=== PATIENT | female | born 1935 | race Caucasian/White ===

== ENCOUNTER 2020-06-12 08:38 | Emergency (ER) | payer MEDICARE, OTHER ==
[~2020-06-12] VITALS: Ht 170.2 cm; Wt 74.1 kg
[~2020-06-12 08:38] MED LIST: ASPIRIN 81M81 MG/TA2 PO; BIOTIN1000 MCG; LEVAQUIN 5500 MG/TA1 PO; LOZOL1.25 MG PO; MACROBID 1100 MG/CAP PO; NATURE'S BLE1000 MCG PO; NITROSTAT0.4 MG/TAB SL; OMEGA-3 1000 MG1 CAP PO; PAMELOR 25MG25 MG PO; TAMIFLU 75MG75 MG PO; TESSALON P100 MG/CAP PO; ULTRAM 50MG TAB50 MG PO; VITAMIND3 5000 PO; ZIAC 10/6.25M1 UDTAB PO; ZOCOR 40MG40 MG PO; [UNRECOGNIZED DRUG - OTHER] PO
[2020-06-12 08:42] VITALS: TEMP 97.4
[2020-06-12 09:17] LABS: BASO % 0.3 % (0.0-2.0); EOS % 0.6 % (0-4.0); GRAN # 4.3 (1.4-6.5); GRAN % 60.7 % (42.2-75.2); HEMATOCRIT 44.7 % (37.0-47.0); HEMOGLOBIN 14.4 g/dl (12.5-16.0); LYMPH # 1.9 (1.2-3.4); LYMPH % 27.6 % (20.0-51.0); MEAN CELL VOLUME 83 fl (80.0-100.0); MEAN CORPUSCULAR HEMOGLOBIN 27 pg (27.0-31.0); MEAN CORPUSCULAR HGB CONC 32 g/dl (33.0-37.0); MEAN PLATELET VOLUME 10.5 fl (7.4-10.4); MONO # 0.7 (0.1-0.6); MONO % 10.4 % (1.7-9.3); PLATELET COUNT 265 K/mm3 (130-400); RED BLOOD COUNT 5.37 M/mm3 (4.10-5.30); REDCELL DISTRIBUTION WIDTH-CV 12.7 % (11.5-14.5)
[2020-06-12 09:30] LABS: ALANINE AMINOTRANSFERASE 15 U/L (4-34); ALBUMIN 4.6 gm/dL (3.5-5.0); ALKALINE PHOSPHATASE 85 U/L (50-136); ANION GAP 13 mmol/L (7-16); AST,SGOT 30 U/L (15-37); BILIRUBIN,TOTAL 0.6 mg/dL (0.0-1.0); BLOOD UREA NITROGEN 16 mg/dL (7-17); CALCIUM 9.4 mg/dL (8.4-10.2); CARBON DIOXIDE 26 mmol/L (22-30); CHLORIDE 103 mmol/L (98-107); CREATININE, serum 0.74 (0.52-1.25); GLUCOSE 109 mg/dL (74-106); POTASSIUM 3.7 mmol/L (3.4-5.0); SODIUM 142 mmol/L (137-145); TOTAL PROTEIN 7.9 gm/dL (6.4-8.2)
[2020-06-12 09:43] LABS: TROPONIN-I < 0.012 ng/mL (0.000-0.035)
[2020-06-12 10:34] LABS: COLLECTION METHOD CLEAN CATCH
[2020-06-12 10:50] LABS: MUCOUS Present /lpf; PH 8 (5-8); SQUAMOUS EPITHELIAL 0-2 /hpf; URINE APPEARANCE Clear; URINE BACTERIA None Seen /hpf; URINE BILIRUBIN Negative (NEGATIVE); URINE BLOOD Negative (NEGATIVE); URINE COLOR Yellow; URINE GLUCOSE Negative (NEGATIVE); URINE KETONE Negative (NEGATIVE); URINE LEUKOCYTE ESTERASE Negative (NEGATIVE); URINE NITRATE Negative (NEGATIVE); URINE PROTEIN(semi-quant) Negative (NEGATIVE); URINE RBC 0-2 /hpf; URINE UROBILINOGEN Negative (NEGATIVE)
[2020-06-12 11:40] VITALS: BP 139/79; PULSE 56
== END 2020-06-12 12:00 | disposition home or self-care (01) ==
LOC: COL.ER 08:38
PROVIDERS: Emergency Medicine
DX: R07.89 Other chest pain (principal); R42 Dizziness and giddiness; I10 Essential (primary) hypertension; E78.5 Hyperlipidemia, unspecified; Z88.0 Allergy status to penicillin; Z88.6 Allergy status to analgesic agent; Z88.1 Allergy status to other antibiotic agents; Z79.82 Long term (current) use of aspirin

== ENCOUNTER 2020-08-07 08:59 | Emergency (ER) | payer MEDICARE, OTHER ==
[~2020-08-07] VITALS: Ht 167.6 cm; Wt 74.1 kg
[2020-08-07 09:06] VITALS: TEMP 97.6
[2020-08-07 10:41] LABS: BASO % 0.4 % (0.0-2.0); EOS % 0.6 % (0-4.0); GRAN # 4.1 (1.4-6.5); GRAN % 60.2 % (42.2-75.2); HEMATOCRIT 44.4 % (37.0-47.0); HEMOGLOBIN 14.3 g/dl (12.5-16.0); LYMPH # 1.8 (1.2-3.4); LYMPH % 27.1 % (20.0-51.0); MEAN CELL VOLUME 85 fl (80.0-100.0); MEAN CORPUSCULAR HEMOGLOBIN 27 pg (27.0-31.0); MEAN CORPUSCULAR HGB CONC 32 g/dl (33.0-37.0); MEAN PLATELET VOLUME 10.5 fl (7.4-10.4); MONO # 0.8 (0.1-0.6); MONO % 11.4 % (1.7-9.3); PLATELET COUNT 270 K/mm3 (130-400); RED BLOOD COUNT 5.24 M/mm3 (4.10-5.30); REDCELL DISTRIBUTION WIDTH-CV 12.9 % (11.5-14.5)
[2020-08-07 10:42] LABS: PROTHROMBIN TIME 11.6 SECONDS (9.7-12.8)
[2020-08-07 10:45] LABS: PARTIAL THROMBOPLASTIN TIME 31.9 SECONDS (26.0-37.0)
[2020-08-07 10:48] LABS: ALANINE AMINOTRANSFERASE 15 U/L (4-34); ALBUMIN 4.4 gm/dL (3.5-5.0); ALKALINE PHOSPHATASE 73 U/L (50-136); ANION GAP 8 mmol/L (7-16); AST,SGOT 31 U/L (15-37); BILIRUBIN,TOTAL 0.5 mg/dL (0.0-1.0); BLOOD UREA NITROGEN 16 mg/dL (7-17); CALCIUM 9.4 mg/dL (8.4-10.2); CARBON DIOXIDE 30 mmol/L (22-30); CHLORIDE 98 mmol/L (98-107); CREATININE, serum 0.74 (0.52-1.25); GLUCOSE 103 mg/dL (74-106); POTASSIUM 4.1 mmol/L (3.4-5.0); SODIUM 135 mmol/L (137-145); TOTAL PROTEIN 7.6 gm/dL (6.4-8.2)
[2020-08-07 11:26] LABS: TROPONIN-I < 0.012 ng/mL (0.000-0.035)
[2020-08-07 13:15] VITALS: BP 140/78; PULSE 51
== END 2020-08-07 13:20 | disposition home or self-care (01) ==
LOC: COL.ER 08:59
PROVIDERS: Family Medicine
DX: R00.1 Bradycardia, unspecified (principal); R42 Dizziness and giddiness; I10 Essential (primary) hypertension; E78.5 Hyperlipidemia, unspecified; Z79.82 Long term (current) use of aspirin; Z87.891 Personal history of nicotine dependence; Z88.0 Allergy status to penicillin; Z88.8 Allergy status to other drugs, medicaments and biological substances; Z88.1 Allergy status to other antibiotic agents; Z88.6 Allergy status to analgesic agent
CPT/HCPCS: J2405; J7030

== ENCOUNTER → 2020-09-22 | Outpatient (CLI) | payer MEDICARE, OTHER | LOC: COL.RAD 07:48 | DX: M48.062 Spinal stenosis, lumbar region with neurogenic claudication (principal); M51.36 Other intervertebral disc degeneration, lumbar region; Z98.890 Other specified postprocedural states | CPT/HCPCS: A9585 ==

== ENCOUNTER 2022-01-27 11:44 | Emergency (ER) | payer MEDICARE, OTHER ==
[~2022-01-27] VITALS: Ht 170.2 cm; Wt 68.2 kg
[2022-01-27 12:04] VITALS: TEMP 98.2
[2022-01-27] MEDS ORDERED: ZOFRAN ODT4 MG PO (14:20)
[2022-01-27] MEDS ORDERED: PERCOCET 325 MG1 TA2 PO (14:20)
[2022-01-27 14:40] VITALS: BP 140/83; PULSE 67
[2022-01-28] MEDS ORDERED: PRAVACHOL 40MG40 MG PO (16:01)
[2022-01-28] MEDS ORDERED: REQUIP 0.5MG0.5 MG PO (16:01)
[2022-01-28] MEDS ORDERED: NORVASC2.5 MG PO (16:01)
[2022-01-29] MEDS ORDERED: TYLENOL 500MG500 MG PO (12:03)
[2022-01-29] MEDS ORDERED: ROXICODONE 55 MG/TAB PO (12:03)
== END 2022-01-27 14:40 | disposition home or self-care (01) ==
LOC: COL.ER 11:44
DX: S42.255A Nondisplaced fracture of greater tuberosity of left humerus, initial encounter for closed fracture (principal); S32.592A Other specified fracture of left pubis, initial encounter for closed fracture; Z88.5 Allergy status to narcotic agent; W18.39XA Other fall on same level, initial encounter; Y93.01 Activity, walking, marching and hiking

== ENCOUNTER 2022-01-29 12:35 | Inpatient (IN) | payer MEDICARE, OTHER ==
[~2022-01-29] VITALS: Ht 170.2 cm; Wt 69.3 kg
[~2022-01-29 12:35] MED LIST changes: +NORVASC2.5 MG PO; +PERCOCET 325 MG1 TA2 PO; +PRAVACHOL 40MG40 MG PO; +REQUIP 0.5MG0.5 MG PO; +ROXICODONE 55 MG/TAB PO; +TYLENOL 500MG500 MG PO; +ZOFRAN ODT4 MG PO
[2022-01-29 16:59] VITALS: BP 121/65; PULSE 75; TEMP 99.1
[2022-01-29 18:03] VITALS: BP 121/65; PULSE 75; TEMP 99.1
--- NOTE | 2022-01-29 19:00 | NUR ---
RECEIVED CHANGE OF SHIFT REPORT FROM DAY SHIFT RN.
[2022-01-30 06:33] VITALS: BP 143/81; PULSE 85; TEMP 97.6
--- NOTE | 2022-01-30 07:36 | NUR ---
CHANGE OF SHIFT REPORT GIVEN TO DAY SHIFT RN. PATIENT UP WITH MAX ASST X1 DURING NIGHT GETTING UP TO BSC FOR ELIMINATION. GIVEN PAIN MEDS REQUESTED, SEE MAR FOR MEDS GIVEN. SLING TO LUE CONTINUES. OBSERVED GAIT SHUFFLING, REQUIRES MAX ASST X1 WITH PIVOTING DURING TRANSFERING FROM BED TO BSC AND BACK TO BED.
--- NOTE | 2022-01-30 08:19 | NUR ---
Shift report received from welder 2nd shift RN. Pt. resting in bed and assisted to bedside commode. Pain pill requested by patient - she would like to take this with her breakfast. She denies additional needs at this time. Call light is within her reach
--- NOTE | 2022-01-30 09:22 | NUR ---
Pt off unit with PT for therapy
--- NOTE | 2022-01-30 10:50 | NUR ---
[employer] completed initial intake with patient as she is new to [facility]. Patient lives in [place] with her Bhavesh Shaw" (ph#[phone]). Patient advised that Kodi has Alzheimers and is currently staying with their daughter, Carmella (ph#[phone]) while patient is in rehab. Patient sees Dr. Garcia for primary care and obtains medications from [facility] with no difficulties. Patient has a cane and four wheeled walker at home but advised she is open to any new DME recommendations. Patient reports she is normally independent with ADLS. SW will continue to follow for discharge needs.
--- NOTE | 2022-01-30 13:09 | NUR ---
Pt assisted back to bed after sitting in recliner for lunch. LUE sling is on. Pt. denies further needs at this time. Call light is within her reach. Bed alarm is on
--- NOTE | 2022-01-30 15:32 | NUR ---
Pt assisted to toilet and then to recliner at her request. Pt. reporting pain and would like pain medication when it is next due. Pt has her call light within her reach. LUE sling is on. She denies additional needs at this time
[2022-01-30 16:49] VITALS: BP 104/65; PULSE 85; TEMP 98
--- NOTE | 2022-01-30 18:09 | NUR ---
Pt. assisted to toilet and then to bed. She reports pain relief from prn pain medication that was given. LUE sling is on. Denies additional needs. Call light is within her reach
--- NOTE | 2022-01-30 18:48 | NUR ---
RECEIVED CHANGE OF SHIFT REPORT FROM DAY SHIFT RN.
--- NOTE | 2022-01-30 19:29 | NUR ---
CONTINUES WITH SLING TO LUE. DENIES ANY NEEDS CURRENTLY BUT IS REQUESTING PAIN MEDS WHEN NEXT AVAILABLE. DENIES CHEST PAIN/SOA/NAUSEA AT THIS TIME. DENIES NUMBNESS/TINGLING TO EXTREMITIES AT THIS TIME.
[2022-01-31 05:40] VITALS: BP 132/63; PULSE 74; TEMP 98.3
[2022-01-31 06:10] LABS: HEMOGLOBIN 10.9 g/dl (12.5-16.0); MEAN CELL VOLUME 85 fl (80.0-100.0); MEAN CORPUSCULAR HEMOGLOBIN 28 pg (27-31); MEAN CORPUSCULAR HGB CONC 33 g/dl (33.0-37.0); MEAN PLATELET VOLUME 11.4 fl (7.4-10.4); PLATELET COUNT 185 K/mm3 (130-400); RED BLOOD COUNT 3.91 M/mm3 (4.10-5.30); REDCELL DISTRIBUTION WIDTH-CV 13.4 % (11.5-14.5)
[2022-01-31 06:16] LABS: HEMATOCRIT 33.2 % (37.0-47.0)
[2022-01-31 06:33] LABS: CALCIUM 8.9 mg/dL (8.4-10.2); CREATININE, serum 0.64 mg/dL (0.57-1.11); MAGNESIUM 1.9 mg/dL (1.6-2.6); POTASSIUM 4.4 mmol/L (3.5-4.5)
--- NOTE | 2022-01-31 07:08 | NUR ---
CHANGE OF SHIFT REPORT GIVEN TO DAY SHIFT RNRICO.
[2022-01-31 08:54] LABS: LYMPHOCYTE 26 % (20.0-51.0); METAMYELOCYTE 1 % (0-0); NEUTROPHILS 66 % (42.0-75.2)
[2022-01-31 08:55] LABS: OVALOCYTES 1+; PLATELET ESTIMATE NORMAL (NORMAL)
[2022-01-31 17:08] VITALS: BP 137/95; PULSE 75; TEMP 98.3
--- NOTE | 2022-01-31 19:00 | NUR ---
RECEIVED CHANGE OF SHIFT REPORT FROM DAY SHIFT RN.
--- NOTE | 2022-02-01 04:28 | NUR ---
AFTER MUCH DISCUSSION, PATIENT AGREED TO TAKE SUPP AT THIS TIME. SEE MAR FOR MEDS PAIN, PAIN MED ALSO GIVEN PER PATIENT REQUEST FOR COMFORT MAINTENANCE.
--- NOTE | 2022-02-01 04:55 | NUR ---
PATIENT TOLERATES STAND/PIVOT TRANSFERS FROM BED TO W/C AND BACK PRIOR FOR OUT OF BED ACTIVITIES, STATING CURRENT PAIN MED REGIMEN, SEE MAR, HAS BEEN MORE HELPFUL IN TOLERATING ACTIVITIES. REPORTS SHE IS MORE ABLE TO TRANSITION FROM SIT TO STAND WITH LESS ASSISTANCE FROM STAFF. USING W/C FOR GOING TO AND FROM BED TO BATHROOM DURING NIGHT.
[2022-02-01 06:28] VITALS: BP 135/70; PULSE 82; TEMP 97.4
--- NOTE | 2022-02-01 06:53 | NUR ---
CHANGE OF SHIFT REPORT GIVEN TO DAY SHIFT RNEBONIE.
--- NOTE | 2022-02-01 06:55 | NUR ---
Shift report received from warehouse shift supervisor RN. Pt. is awake and lying supine in bed. RUE sling is on. Per shift report, pt. having loose stools after suppository given earlier this morning. Pt. denies additional needs at this time. Call light is within her reach
--- NOTE | 2022-02-01 08:00 | NUR ---
Pt sitting up in recliner. She has finished breakfast and is now performing oral hygiene. RUE sling is on. No further episodes of loose stools so far after suppository was given this morning. Denies abd. pain/nausea. Call light is within her reach. She denies further needs at this time
--- NOTE | 2022-02-01 09:46 | NUR ---
Initial visit; Patient delightful, nice, appreciative of everyone who is taking care of her needs while she is here with us at [facility]via [facility]. She thanks everyone for the good care she is getting and is thankful for God's blessings.
--- NOTE | 2022-02-01 10:16 | NUR ---
Pt. sitting up in her wheelchair eating a snack. She reports minimal pain. No further loose stools after suppository was given this morning. She denies additional needs. Call light is within her reach
--- NOTE | 2022-02-01 15:34 | NUR ---
Pt sitting in recliner chair. She has just completed OT. She reports pain/discomfort in hips and RUE. Will administer pain medication as scheduled. She denies additional needs at this time. Call light is within her reach
[2022-02-01 17:11] VITALS: BP 115/76; PULSE 70; TEMP 98.2
--- NOTE | 2022-02-01 18:14 | NUR ---
Pt assisted to wheelchair then to sink for oral hygiene. Pt. then assisted to bed. She reports that her pain is "okay". She denies additional needs at this time. Call light is within her reach
--- NOTE | 2022-02-02 03:12 | NUR ---
Pt has had an uneventful evening. Assessment and medication administration completed without difficulty. Pt has had complaints of pain intermittently, PRN pain medication given per EMAR. Pt has ambulated to the restroom with SBA, gait does not display weakness. Pt now resting quietly in bed, call light in place. Will continue to monitor.
[2022-02-02 06:02] VITALS: BP 122/65; PULSE 73; TEMP 97.8
--- NOTE | 2022-02-02 15:16 | NUR ---
Cake Inspector met with patient to present and review team conference notes. SW advised that the team appreciates her hard work and motivation and that progress has been slow, but steady. Patient became tearful about her progress being slow, but both SW and OT offered support and encouragement. Both reassured patient that she is working hard and going in the right direction. STANLEY advised no discharge date is set at this time and also discussed a family meeting. Patient would like her children, Carmella and Alban to attend. STANLEY contacted Carmella and scheduled for Sunday at 1000. Carmella to check with Alban to see if he can attend and contact SW with any issues.
--- NOTE | 2022-02-02 15:59 | NUR ---
Admission QIM scores were reviewed by the team. Code of 5 chosen for eating was determined by team discussion to be the most usual performance for this patient during the assessment period. Code of 3 chosen for toilet hygiene was determined by team discussion to be the most usual performance for this patient during the assessment period. Code of 3 chosen for toilet transfers was determined by team discussion to be the most usual performance for this patient during the assessment period. Code of 2 chosen for upper body dressing was determined by team discussion to be the most usual performance before interventions for this patient during the assessment period.--Opal Perera, PD
[2022-02-02 17:35] VITALS: BP 118/84; PULSE 76; TEMP 98.1
--- NOTE | 2022-02-03 01:35 | NUR ---
Pt has had an uneventful shift thus far. Pt resting quietly in bed, watching TV intermittently. Minimal complaints of pain have been expressed, PRN pain medication administered per EMAR. Pt states that a majority of her pain is from PT/OT earlier in the day. Assessment and medication administration completed without difficulty. Pt is A&Ox4 and pleasant. All other needs met at this time, call light within reach. Will continue to monitor.
[2022-02-03 05:24] VITALS: BP 115/51; PULSE 67; TEMP 97.4
--- NOTE | 2022-02-03 10:06 | NUR ---
PATIENT DOING WELL THIS MORNING. GOOD APPETITE. TAKES MEDS WHOLE WITH THIN LIQUIDS. MILD PAIN, WELL CONTROLLED WITH MEDS. PARTICIPATED IN THERAPY TODAY WITHOUT ISSUE. LEFT SLING ON ARM. USES WALKER FOR AMBULATION. ABLE TO TRANSFER FROM BED WITH STAND BY ASSIST. FAMILY MEETING SCHEDULED FOR SUNDAY. INDEPENDENT FROM HOME, LIVES WITH SPOUSE, HOWEVER SPOUSE IS CURRENTLY LIVING WITH DAUGHTER DUE TO ALZEIMERS DISEASE. CONTINENT OF B/B. A&O X4. VITALS WNL.
--- NOTE | 2022-02-03 16:17 | NUR ---
Set Key Driver was contacted by patient's daughter, Carmella who confirmed Sunday's meeting, but also advised that her brother cannot attend so she plans to record the meeting so her brother can listen to it at a later time. SW offered to reschedule, however Carmella prefers to keep the meeting as is. STANLEY updated Director.
[2022-02-03 18:10] VITALS: BP 127/71; PULSE 67; TEMP 98.3
--- NOTE | 2022-02-04 04:22 | NUR ---
Pt has had an uneventful shift, currently resting quietly in bed. Assessment and medication administration completed without difficulty. Pt is A&Ox4 and pleasant. Pt has had complaints of pain througHout the shift; PRN pain medicaton given per EMAR. Pts daughter brought applesauce for pt to take pills with; currently in IPR fridge. All other needs met at this time, call light within reach.
[2022-02-04 05:51] VITALS: BP 120/65; PULSE 68; TEMP 97.8
--- NOTE | 2022-02-04 07:21 | NUR ---
Shift report received from plant operator/shift supervisor RN Mariela. Pt. awake and resting supine in bed. She is requesting her medications be given before therapy. Call light is within her reach
--- NOTE | 2022-02-04 09:06 | NUR ---
ASSESSMENT DONE ORDER. PATIENT AX4 WITH NO ISSUE WITH MEMORY. PATIENT ABLE TO GET UP WITH ASSISTANCE.GAIT BELT AND WALKER IN PLACE. PATIENT ABLE TO GET TO THE RESTROOM WITH SLOW PAST. SHUFFING HER LEFT LEG WITH THE HELP OF THE CANE\WALER. PATIENT ATE ABOUT 90 % OF HER BREAKFAST. PATIENT COMPLAIN OF PAIN ON ARM\LEGS TODAY 5\10 ON PAIN SCALE. PAIN MEDICATION WAS GIVE AROUND 745AM AND REASSESS AROUND 835AM, PAIN DECREASE TO 3/10 ON PAIN SCALE. PATIENT GOAL IS TO DO THINGS ON HER OWN WHICH SHE DOES PRETTY GOOD. STILL NEED SLIGHT HELP WITH PULLING UP HER CLOTHS AFTER USING THE BATHROOM.
--- NOTE | 2022-02-04 16:45 | NUR ---
PATIENT WANTED TO WALK AROUND OUT SIDE HER ROOM.TOOK HER AROUND THE IPR AND SURGICAL NURSE WITH GAIT BELT/CANE(WALKER). PATIENT PAIN BEFORE WALKING WAS A 5/10 AND SHE REFUSED PAIN MEDICATION AT THAT TIME. WALK AROUND AND TOOK HER BACK TO ROOM, PAIN INCREASE 7/10 BUT STILL REFUSED OPOID MEDICATION AND JUST WANTED TYLENOL FOR NOW. 5 MINUTES AFTER WALKING PAIN WAS STILL 7\10 BUT WAS TOLERATABLE
[2022-02-04 17:27] VITALS: BP 122/68; PULSE 80; TEMP 97.8
--- NOTE | 2022-02-05 03:15 | NUR ---
Pt has had an uneventful shift thus far with minimal complaints of pain. Pt has been up to the restroom multiple times with SBA. Assessment and medication administration completed without difficulty.PRN pain medication given per EMAR. All other needs met at this time, call light within reach.
[2022-02-05 05:59] VITALS: BP 119/65; PULSE 69; TEMP 98.6
--- NOTE | 2022-02-05 07:14 | NUR ---
PATIENT BLOODPRESSURE WAS LESS THAN 120. ZIAC WAS NOT GIVEN PER ORDER.
--- NOTE | 2022-02-05 09:35 | NUR ---
ASSESSMENT DONE ORDER. PATIENT PAIN WAS A 8/10 THIS MORNING(LEFT ARM PAIN ) PAIN MEDICATION WAS GIVEN ORDER. 1 HOUR LATER, PAIN DECREASE TO 6/10 ON LEFT ARM. PATIENT ABLE TO GET UP AND WALK AROUND WITH WALKER/CANE WITH ASSISTANCE. PATIENT ATE ABOUT 90% OF HER FOOD. SLEPT WELL SHE SAID. ABLE TO TOLERATED MEDICATION . PATIENT IS ALERTX 4
[2022-02-05 16:48] VITALS: BP 128/84; PULSE 82; TEMP 98.2
--- NOTE | 2022-02-05 20:17 | NUR ---
ASSESSMENT COMPLETE. PT. LYING IN BED WATCHING TV. NO COMPLAINS OF PAIN. LEFT ARM IN SLING AND SUPPORTED BY A PILLOW. TRINH HOSE ON BILATERAL LOWER EXTREMETIES. CALL LIGHT IN REACH. NO FURTHER NEEDS AT THIS TIME.
[2022-02-06 05:34] VITALS: BP 127/72; PULSE 73; TEMP 97.8
--- NOTE | 2022-02-06 10:57 | NUR ---
PATIENT DOING WELL THIS SHIFT. PARTICIPATED IN PT/OT WITHOUT ISSUE. PAIN MEDICATION PLACED ON SCHEDULE PER PATIENT REQUEST. PAIN WELL CONTROLLED AT THIS TIME. TAKES MEDS WHOLE WITH APPLESAUCE. GOOD APPETITE. AMBUALTES WELL WITH USE OF WALKER. A&O X4. CONT OF B/B. NO SKIN ISSUES. ABLE TO COMPLETE ADLS ON OWN. ABLE TO DRESS SELF, USES ASSISTIVE DEVICE TO PUT ON SHOES WITHOUT ISSUE
--- NOTE | 2022-02-06 13:51 | NUR ---
Teacher Of The Handicapped met with patient to check in from the weekend. Patient reports she had a good weekend and is looking forward to her shower this afternoon. Patient discussed family meeting and is hopeful her daughter, Carmella can bring her , Kodi. Patient plans to discuss this with Carmella today.
[2022-02-06 16:48] VITALS: BP 151/67; PULSE 78; TEMP 98.7
--- NOTE | 2022-02-06 18:11 | NUR ---
PATIENT TAKEN BY FAMILY IN WHEEL CHAIR DOWN TO COURT YARD FOR VISIT WITH GRAND CHILDREN. PATIENT IN STABLE CONDITION WITH NO COMPLAINTS.
--- NOTE | 2022-02-07 04:53 | NUR ---
Pt has had an uneventful evening this shift. Pt returned to room from seeing family in hospital courtyard. Pt has had minimal complaints of pain, scheduled medication given per EMAR. Pt currently using cane for ambulation without difficulty. All other needs met at this time, call light within reach.
[2022-02-07 04:59] VITALS: BP 139/65; PULSE 72; TEMP 97.6
--- NOTE | 2022-02-07 10:32 | NUR ---
PATIENT ALERT AND ORIENTED X3. VSS. PATIENT HERE FOR PELVIC AND LEFT HUMERUS FRACTURE. PATIENT DENIES PAIN. LUNGS CTA, BOWEL SOUNDS ACTIVE. ASSESSMENT PERFORMED. AM MEDS ADMINISTERED. PATIENT IN CHAIR WITH CALL LIGHT NEAR.
[2022-02-07 16:58] VITALS: BP 135/66; PULSE 61; TEMP 97.9
--- NOTE | 2022-02-08 04:10 | NUR ---
Pt has had an uneventful shift. Assessment and medication administration completed without difficulty. Pt is A&Ox3 and pleasant. Pt stated to this nurse that during marketing administrator that if she is sleeping to not wake her up for pain medications; according to pt "if I'm asleep I'm not in pain." Pt and nurse expressed understanding to pts request. All other needs met at this time,call light within reach.
[2022-02-08 05:00] VITALS: BP 105/59; PULSE 65; TEMP 98.4
--- NOTE | 2022-02-08 08:53 | NUR ---
ASSESSMENT DONE ORDER. PATIENT ALERTX4 WITH NO ISSUE. LUNG CLEAR IN ALL LOBES. BOWEL SOUND ACTIVE. PATIENT STILL HAVE PAIN ON RIGHT ARM AND LEG. ABLE TO GET UP WITH USING WALKER\CANE WITH 1 PERSON SUPERVISED.
--- NOTE | 2022-02-08 15:22 | NUR ---
Fountain Operator attended patient's family meeting which included her daughter, son, and . Opal IPR Director opened the meeting followed up by report from Programs Assistant, PT, and OT. Discharge date set for Sunday and both patient and family are in agreement. Discharge recommendations are for Home Health and a straight cane. Patient's daughter, Carmella would also like assistance with hospital bed rental. STANLEY collaborated with Programs Assistant to secure documentation needed for hospital bed rental. STANLEY contacted Erlinda at [facility] and faxed referral for both hospital bed and straight cane. SW followed up with patient and provided copy of team conference notes. STANLEY also provided Medicare.gov list of HH agencies to patient who advised she's used [facility] before, but is not sure whether or not she wants to use them again. STANLEY invited patient to review list and will follow up tomorrow.
[2022-02-08 16:39] VITALS: BP 125/78; PULSE 71; TEMP 98.1
--- NOTE | 2022-02-08 20:00 | NUR ---
PT RESTING IN BED. PAIN RELIEVED WITH PAIN MED EARLIER. CHILD THERAPIST ASSISTING PT WITH CHNAGING TO NIGHT CLOTHES VIA SBA. PT MOD I IN ROOM. LT ARM IN SLING. CALL LIGHT IN REACH.
--- NOTE | 2022-02-09 02:01 | NUR ---
PT ASLEEP. NO DISTRESS.
[2022-02-09 05:12] VITALS: BP 125/70; PULSE 85; TEMP 97.4
--- NOTE | 2022-02-09 14:24 | NUR ---
Electrocardiogram Technician met with patient to follow up on Home Health and patient advised she wants to select [facility]. SW also presented IM form to patient who verbalized understanding and provided signature. STANLEY placed form in chart and provided copy to patient. STANLEY contacted David at [facility] and faxed referral. STANLEY then spoke with Erlinda at [facility] who advised they received all necessary documentation and are scheduled to deliver DME tomorrow at 1400. STANLEY updated RN on DME delivery. STANLEY then left a message for patient's daughter, Carmella and encouraged her to call back with any questions or concerns.
[2022-02-09 16:52] VITALS: BP 123/69; PULSE 64; TEMP 98.2
--- NOTE | 2022-02-09 18:22 | NUR ---
PATIENT ALERT AND ORIENTED X3. VSS. PATIENT REPORTS PAIN 9/10 REQUESTS PAIN MEDICATION. ASSESSMENT PERFORMED. AM MEDS ADMINISTERED. PATIENT IN CHAIR WAITING FOR THERAPY WITH CALL LIGHT NEAR.
--- NOTE | 2022-02-09 20:16 | NUR ---
PT RESTING IN BED. NO COMPLAINTS OR NEEDS. LT ARM IN SLING. GOOD RADIAL PULSE. GOOD SENSATION. PT MOD I IN ROOM. USES GOOD SAFETY JUDGEMENTS. CALL LIGHT IN REACH
[2022-02-10 05:42] VITALS: BP 115/80; PULSE 66; TEMP 97.7
--- NOTE | 2022-02-10 07:19 | NUR ---
Shift report received from mold shifter RN. Pt. awake and sitting up in recliner. She verbalizes being ready for discharge today. ODELL sling is on. Call light is within her reach
--- NOTE | 2022-02-10 08:28 | NUR ---
ASSESSMENT DONE ORDER. PATIENT ALERT AND ORIENT X4 . ABLE TO TAKE MEDICATION WHOLE WITH OUT ANY ISSUE. PATIENT ABLE TO GET UP WITH OUT ASSISTANCE IN THE ROOM. LUNG SOUND CLEAR. BOWEL SOUND ACTIVE AND HAD A BOWEL MOVEMENT TODAY. PATIENT WILL BE DISCHARGE TODAY.
--- NOTE | 2022-02-10 08:56 | NUR ---
CALLED DR KLEIN AND LEFT MESSAGES REGARDING A FOLLOW UP APPOITMENT
[2022-02-10] MEDS ORDERED: ZOLOFT 50MG50 MG PO (09:02)
[2022-02-10] MEDS ORDERED: ROXICODONE 55 MG/TAB PO (09:04)
--- NOTE | 2022-02-10 11:41 | NUR ---
Furnace Reliner contacted David at [facility] and faxed discharge orders.
--- NOTE | 2022-02-10 11:47 | NUR ---
DISCHARGE PAPERWORK AND EDUCATION WAS GIVEN TO PATIENT AND FAMILY. PATIENT AND FAMILY HAD NO CONCERN OR QUESTION. PATIENT PAIN WAS 4\10 BYT PAIN MEDICATION WAS JUST GIVEN. PATIENT WAS READY TO LEAVE THE HOSPITAL. PATIENT WAS WHEELED DOWN IN WHEELCHAIR. PATIENT STATED TH AT THE BED AND CANE WILL BE DELIVERD TODAY. INSTURCTED TO GIVE PAPERWORK TO HER PCP.PATIENT IS AWARE. ALL PAPERWORK WAS SIGN BY PATIENT .
== END 2022-02-10 11:45 | disposition home health service (06) | DRG 561 ==
PROVIDERS: ADMIT Internal Medicine
DX: S32.592D Other specified fracture of left pubis, subsequent encounter for fracture with routine healing (principal); S42.255D Nondisplaced fracture of greater tuberosity of left humerus, subsequent encounter for fracture with routine healing; R26.89 Other abnormalities of gait and mobility; E78.5 Hyperlipidemia, unspecified; I10 Essential (primary) hypertension; M19.90 Unspecified osteoarthritis, unspecified site; Z66 Do not resuscitate; K21.9 Gastro-esophageal reflux disease without esophagitis; G62.9 Polyneuropathy, unspecified; F32.A Depression, unspecified; F41.9 Anxiety disorder, unspecified; K59.00 Constipation, unspecified; G89.29 Other chronic pain; M54.50 Low back pain, unspecified; Z88.8 Allergy status to other drugs, medicaments and biological substances; Z88.1 Allergy status to other antibiotic agents; Z88.5 Allergy status to narcotic agent; Z88.0 Allergy status to penicillin; Z79.891 Long term (current) use of opiate analgesic; Z79.899 Other long term (current) drug therapy; W19.XXXD Unspecified fall, subsequent encounter; Z73.6 Limitation of activities due to disability; Y92.838 Other recreation area as the place of occurrence of the external cause
CPT/HCPCS: G0378; J1650

== ENCOUNTER 2022-05-25 12:36 | Day surgery (SDC) | payer MEDICARE, OTHER ==
[2022-05-25] VITALS (168 sets, daily range): BP systolic 121–187; BP diastolic 72–112; PULSE 62–83; TEMP 98.1–98.4; O2SAT 92–99
[~2022-05-25] VITALS: Ht 170.2 cm; Wt 66.9 kg
[~2022-05-25 12:36] MED LIST changes: +ZOLOFT 50MG50 MG PO
[2022-05-25 14:16] LABS: HEMATOCRIT 40.2 % (37.0-47.0); HEMOGLOBIN 13.1 g/dl (12.5-16.0); MEAN CELL VOLUME 82 fl (80.0-100.0); MEAN CORPUSCULAR HEMOGLOBIN 27 pg (27-31); MEAN CORPUSCULAR HGB CONC 33 g/dl (33.0-37.0); MEAN PLATELET VOLUME 10.5 fl (7.4-10.4); PLATELET COUNT 255 K/mm3 (130-400); REDCELL DISTRIBUTION WIDTH-CV 13.2 % (11.5-14.5)
[2022-05-25 14:21] LABS: INR 1.1 (0.8-3.0); PROTHROMBIN TIME 12.8 SECONDS (9.7-12.8)
[2022-05-25 14:30] LABS: CALCIUM 9.1 mg/dL (8.4-10.2); CREATININE, serum 0.79 mg/dL (0.57-1.11); POTASSIUM 3.4 mmol/L (3.5-4.5)
[2022-05-25] MEDS ORDERED: ASPIRIN E.C. 8181 MG PO (14:35)
[2022-05-25] MEDS ORDERED: ULTRAM 50MG TAB50 MG PO (14:36)
[2022-05-25] MEDS ORDERED: MIRALAX PA17 GM/Dose PO (14:36)
[2022-05-25] MEDS ORDERED: PEPCID40 MG PO (14:37)
[2022-05-25] MEDS ORDERED: ZOLOFT 100MG100 MG PO (14:37)
[2022-05-25] MEDS ORDERED: ZIAC 2.5/6.25MG1 TAB PO (14:38)
--- NOTE | 2022-05-25 17:03 | NUR ---
SEE MERGE FOR VITAL SIGNS, ASSESSMENT, INTERVENTIONS AND MEDICATIONS GIVEN
--- NOTE | 2022-05-25 18:46 | NUR ---
PT BROUGHT TO ICU FROM GLUE SPRAYER VIA BED AT 1811. PT IS ALERT AND ORIENTED, IS ABLE TO MOVE HERSELF FROM GLUE SPRAYER BED TO ICU BED, DENIES ANY PAIN. IT BAND IN PLACE TO CATH SITE AT RIGHT RADIAL ARTERY, NO BLEEDING OR HEMATOMA NOTED. PER REPORT BAND WAS FILLED W/ 14ML OF AIR AT 1737. LOOP RECORDER IMPLANT SITE TO LEFT UPPER CHEST IS COVERED W/ DRESSING, DRESSING IS CDI. PT HAS 22G IV TO L FOREARM, SITE IS WNL, NO FLUIDS OR MEDS ARE INFUSING AT THIS TIME. VS AND CATH SITE MONITORED PER POST CATH FLOWSHEET. PT INSTRUCTED TO AVOID USING RIGHT ARM IF POSSIBLE AND TO NOT PUT PRESSURE ON THAT ARM. AT TIME OF THIS NOTE PT IS RESTING IN BED, WATCHING TV, CALL LIGHT IN REACH.
--- NOTE | 2022-05-25 19:51 | NUR ---
ATTEMPTED TO REMOVE 2ML AIR FROM RADIAL BAND, DRAINAGE PRESENT AND 2ML AIR RETURNED TO BAND
--- NOTE | 2022-05-25 20:00 | NUR ---
SHIFT REPORT RECEIVED. PT A&O. RT RADIAL WRIST COMPRESSION BAND IN PLACE. SITE IS NON PAINFUL, MILD BRUISING PROXIMAL TO WRIST COMPRESSION. CAP REFILLS <3 SEC. LT RADIAL PULSE +2, BLE PULSES +2. LT CHEST AT SITE OF LOOP MONITOR HAS DRESSINGS INTACT WITH SCANT BLOOD AT BOTTOM OF DRESSING. NO BLOOD WHEEPING NOTED ON BANDAGE.
--- NOTE | 2022-05-25 22:00 | NUR ---
ALL AIR REMOVED FROM RADIAL COMPRESSION BAND. COMPRESSION BANDAGE APPLIED. SITE WITH NO BLEEDING. PT INCISION SITE ON LT CHEST SOAKED BANDAGE WHEN PT SAT UP. PRESSURE APPLIED AND NEW 4X4'S APPLIED WITH TEGADERM. DITE MONITORED FOR 10MINS WITH NO BLEEDING NOTED. PT EDUCATED TO RETURN IF BANDAGE BECOMES BLOOD SOAKED AGAIN. PT DENIES ANY PAIN AT THIS TIME. PT TAKEN HOME BY FAMILY. ALL QUESTIONS ANSWERED.
== END 2022-05-25 22:15 | disposition home or self-care (01) ==
LOC: COL.CAR 12:36 → ICU 18:28 → COL.CAR 22:15
PROVIDERS: Internal Medicine Cardiovascular Disease
DX: R55 Syncope and collapse (principal); I25.10 Atherosclerotic heart disease of native coronary artery without angina pectoris
CPT/HCPCS: OP; C1764; C1769; C1887; J1644; J2250; J3010

== ENCOUNTER 2022-09-28 13:24 | Emergency (ER) | payer MEDICARE, OTHER ==
[~2022-09-28] VITALS: Ht 162.6 cm; Wt 66.4 kg
[~2022-09-28 13:24] MED LIST changes: +ASPIRIN E.C. 8181 MG PO; +MIRALAX PA17 GM/Dose PO; +PEPCID40 MG PO; +ZIAC 2.5/6.25MG1 TAB PO; +ZOLOFT 100MG100 MG PO
[2022-09-28] MEDS ORDERED: PEPCID40 MG PO (13:44)
[2022-09-28] MEDS ORDERED: ALEVE LIQCAPS PO (16:43)
[2022-09-28] MEDS ORDERED: MIRALAX510G PO (16:43)
[2022-09-28] MEDS ORDERED: PEPCID 20MG TAB20 MG PO (16:43)
[2022-09-28 17:00] VITALS: BP 157/101; PULSE 73; TEMP 98.1
== END 2022-09-28 16:59 | disposition home or self-care (01) ==
LOC: COL.ER 13:24
DX: K56.41 Fecal impaction (principal); Z87.891 Personal history of nicotine dependence
CPT/HCPCS: J1885

== ENCOUNTER 2023-04-11 15:29 | Emergency (ER) | payer MEDICARE, OTHER ==
[~2023-04-11] VITALS: Ht 167.6 cm; Wt 68.2 kg
[~2023-04-11 15:29] MED LIST changes: +ALEVE LIQCAPS PO; +BETAPACE 80MG80 MG PO; +CLEOCIN HCL300 MG PO; +COUMADIN 5MG5 MG/TAB PO; +ELIQUIS 2.5 PO; +HCTZ12.5TAB PO; +MIRALAX510G PO; +NATURE'S BLE1000 MCG; +PEPCID 20MG TAB20 MG PO; +PROBIOTIC BLEN1 EACH PO; +TYLENOL 8 HR PO; -ZOLOFT 100MG100 MG PO
[2023-04-11 15:30] VITALS: TEMP 98.6
[2023-04-11 16:30] LABS: BASO % 0.3 % (0.0-2.0); EOS # 0.1 K/mm3 (0.0-0.7); EOS % 0.9 % (0.0-4.0); GRAN # 5.5 K/mm3 (1.4-6.5); GRAN % 61.2 % (42.2-75.2); HEMOGLOBIN 13.2 g/dl (12.5-16.0); LYMPH # 2.6 K/mm3 (1.2-3.4); LYMPH % 28.8 % (20.0-51.0); MEAN CELL VOLUME 86 fl (80.0-100.0); MEAN CORPUSCULAR HEMOGLOBIN 28 pg (27-31); MEAN CORPUSCULAR HGB CONC 32 g/dl (33.0-37.0); MEAN PLATELET VOLUME 10.3 fl (7.4-10.4); MONO # 0.8 K/mm3 (0.1-0.6); MONO % 8.6 % (1.7-9.3); PLATELET COUNT 248 K/mm3 (130-400); RED BLOOD COUNT 4.78 M/mm3 (4.10-5.30); REDCELL DISTRIBUTION WIDTH-CV 12.6 % (11.5-14.5)
[2023-04-11 16:42] LABS: INR 4.5 (0.8-3.0)
[2023-04-11 16:50] LABS: ALBUMIN 4.5 gm/dL (3.4-4.8); BILIRUBIN,TOTAL 0.4 mg/dL (0.2-1.2); CALCIUM 9.5 mg/dL (8.4-10.2); CREATININE, serum 1.07 mg/dL (0.57-1.11); POTASSIUM 3.5 mmol/L (3.5-4.5); TOTAL PROTEIN 8.3 gm/dL (6.2-8.1)
[2023-04-11 16:52] LABS: PROTHROMBIN TIME 47.3 SECONDS (9.7-12.8)
[2023-04-11 17:32] VITALS: BP 162/91; PULSE 69
== END 2023-04-11 17:41 | disposition home or self-care (01) ==
LOC: COL.ER 15:29
PROVIDERS: Personal Emergency Response Attendant
DX: R04.0 Epistaxis (principal); R79.1 Abnormal coagulation profile; Z88.5 Allergy status to narcotic agent; Z28.311 Partially vaccinated for COVID-19
CPT/HCPCS: J2405; J3010

== ENCOUNTER 2024-05-16 13:52 | Outpatient (CLI) | payer MEDICARE, OTHER ==
[~2024-05-16] VITALS: Ht 167.6 cm; Wt 69.8 kg
[~2024-05-16 13:52] MED LIST changes: +OMNICEF 300MG300 MG PO
[2024-05-16] MEDS ORDERED: Denosumab 60 MG/ML SYRINGE SQ ONE (14:15)
[2024-05-16 14:18] VITALS: BP 153/80; PULSE 72; TEMP 98.1
[2024-05-16] MEDS ORDERED: ULTRAM 50MG TAB50 MG PO (14:23)
[2024-05-16] MEDS ORDERED: PRAVACHOL 40MG40 MG PO (14:26)
== END 2024-05-16 14:30 | disposition home or self-care (01) ==
LOC: EUO 13:52
DX: M81.0 Age-related osteoporosis without current pathological fracture (principal)
CPT/HCPCS: J0897